=== PATIENT | male | born 1950 | race Caucasian/White ===

== ENCOUNTER 2024-08-07 10:49 | Outpatient (CLI) | payer MEDICARE, OTHER | END 2024-08-07 10:50 | disposition home or self-care (01) | LOC: CSHCT 10:49 | PROVIDERS: ATTEND Otolaryngology Plastic Surgery within the Head & Neck | DX: H90.3 Sensorineural hearing loss, bilateral (principal); H74.8X3 Other specified disorders of middle ear and mastoid, bilateral; Z96.22 Myringotomy tube(s) status | CPT/HCPCS: 70480 ==

== ENCOUNTER 2024-12-24 06:39 | Day surgery (SDC) | payer MEDICARE, OTHER ==
[2024-12-23 14:14] VITALS: BMI 30.4
[2024-12-24 07:35] LABS: Hematocrit 40.4 % (38.8-50.0); Hemoglobin 13.3 g/dL (13.5-17.5)
[2024-12-24 07:54] LABS: Anion Gap 15 mmol/L (10-20); BUN (Urea Nitrogen) 29 mg/dL (8.4-25.7); Calc. Creatinine Clearance 72 mL/min (70-130); Calcium 9.3 mg/dL (7.8-10.44); Carbon Dioxide 24 mmol/L (23-31); Chloride 106 mmol/L (98-107); Estimated GFR 56; Glucose 204 mg/dL (83-110); Potassium 4.8 mmol/L (3.5-5.1); Sodium 140 mmol/L (136-145)
[2024-12-24] MEDS ORDERED: Dexamethasone 20 MG/5 ML VIAL ONE ×2 (08:45→12:37)
[2024-12-24] MEDS ORDERED: Ondansetron PF 4 MG/2 ML Vial ONE (08:45)
[2024-12-24] MEDS ORDERED: PROPOFOL 40 ML ONE (08:45)
[2024-12-24] MEDS ORDERED: Midazolam HCl 2 mg/2 ml Vial ONE (08:45)
[2024-12-24] MEDS ORDERED: Fentanyl 100 MCG/2 ML VIAL ONE ×2 (08:45→10:45)
[2024-12-24] MEDS ORDERED: SUGAMMADEX SODIUM 200 MG/2 ML VIAL ONE (08:45)
[2024-12-24] MEDS ORDERED: Lidocaine 1% PF 5 ML VIAL ONE (08:45)
[2024-12-24] MEDS ORDERED: Rocuronium Bromide 10 MG/ML (10ML VIAL) ONE (08:45)
[2024-12-24] MEDS ORDERED: EPINEPHrine 1 MG/ML VIAL ONE (09:42)
[2024-12-24] MEDS ORDERED: Methylene Blue 50 MG/10 ML AMPUL ONE (09:42)
[2024-12-24] MEDS ORDERED: Mupirocin 2% Ointment 22 GM Tube ONE (09:42)
[2024-12-24] MEDS ORDERED: Lidocaine 1% w/Epinephrine 1:200K 30 ML VIAL ONE (09:43)
[2024-12-24] MEDS ORDERED: CEFAZOLIN 1 GM VIAL ONE ×2 (10:27→10:34)
[2024-12-24] MEDS ORDERED: ePHEDrine Sulfate 50 MG/10 ML VIAL ONE (11:03)
[2024-12-24] MEDS ORDERED: oFLOXacin 0.3% Opth 5 ML BOT ONE (12:51)
== END 2024-12-24 14:43 | disposition home or self-care (01) ==
LOC: CSHSDC 06:39
PROVIDERS: ATTEND Otolaryngology Plastic Surgery within the Head & Neck
PROC: 09HD05Z Insertion of Single Channel Cochlear Prosthesis into Right Inner Ear, Open Approach (ICD-10-PCS; principal; 2024-12-24)
DX: H90.6 Mixed conductive and sensorineural hearing loss, bilateral (principal); H65.23 Chronic serous otitis media, bilateral; I10 Essential (primary) hypertension; E03.9 Hypothyroidism, unspecified; E11.36 Type 2 diabetes mellitus with diabetic cataract; H26.9 Unspecified cataract; Z85.828 Personal history of other malignant neoplasm of skin; Z87.891 Personal history of nicotine dependence; Z98.41 Cataract extraction status, right eye; Z96.22 Myringotomy tube(s) status; Z79.890 Hormone replacement therapy; Z79.82 Long term (current) use of aspirin; Z79.899 Other long term (current) drug therapy
CPT/HCPCS: 69930; 70250; 80048; 85014; 85018; 93005; C1713; J0171; J0690; J1100; J2250; J2405; J2704; J3010; L8614 ×2; 36415; 93010